=== PATIENT | female | born 1990 | race Caucasian/White ===

== ENCOUNTER 2021-03-16 12:13 | Inpatient (IN) | payer OTHER ==
[2021-03-16 16:36] VITALS: BMI 24.7
[2021-03-16] MEDS ORDERED: Ondansetron PF 4 MG/2 ML Vial IVP PRN (17:57)
[2021-03-16] MEDS ORDERED: Bisacodyl 5 MG TAB PO PRN (17:57)
[2021-03-16] MEDS ORDERED: Senokot S 8.6-50 MG TAB PO PRN (17:57)
[2021-03-16] MEDS ORDERED: Nitroglycerin 4.9 GM Bottle SL PRN (18:05)
[2021-03-16] MEDS: traZODone HCl 50 MG TAB PO SCH (20:08)
[2021-03-16] MEDS: Ondansetron ODT 4 MG TAB PO SCH (20:08)
[2021-03-16] MEDS: Haloperidol 5 MG TAB PO SCH (20:08)
[2021-03-16] MEDS: Pantoprazole 40 MG VIAL IVP SCH (20:09)
[2021-03-16] MEDS: Morphine 2 MG/ML VIAL SLOW IVP PRN (20:13)
[2021-03-16 21:38] LABS: Hemoglobin 10.7 g/dL (12.0-16.0); Mean Platelet Volume 7.8 fL (7.4-10.4); Platelet Count 245 thou/uL (130-400); RBC Distribution Width 13.7 % (11.5-14.5); Red Blood Cell (RBC) Count 3.55 mill/uL (4.20-5.40); White Blood Cell (WBC) Count 14.6 thou/uL (4.8-10.8)
[2021-03-16 21:53] LABS: Anion Gap 7 mmol/L (10-20); BUN (Urea Nitrogen) 11 mg/dL (7.0-18.7); Calc. Creatinine Clearance 108 mL/min (70-130); Calcium 7.8 mg/dL (7.8-10.44); Carbon Dioxide 32 mmol/L (22-29); Chloride 101 mmol/L (98-107); Glucose 96 mg/dL (70-105); Magnesium 1.8 mg/dL (1.6-2.6); Sodium 137 mmol/L (136-145)
[2021-03-16 21:57] LABS: Potassium 2.9 mmol/L (3.5-5.1)
[2021-03-16] MEDS ORDERED: Potassium Phosphate 30 MMOL in Sodium Chloride 0.9% 250 ML 250 ML IVPB SCH (22:30)
[2021-03-16] MEDS: Acetaminophen 325 MG TAB PO PRN (22:49)
[2021-03-17] MEDS: Morphine 2 MG/ML VIAL SLOW IVP PRN ×4 (00:13→22:17)
[2021-03-17] MEDS: Ondansetron ODT 4 MG TAB PO SCH ×6 (01:19→21:20)
[2021-03-17 07:07] LABS: #Eosinphils 0.1 thou/uL (0.0-0.7); #Lymphocytes 3.3 thou/uL (1.20-3.40); #Monocytes 0.7 thou/uL (0.11-0.59); #Neutrophils 5.6 thou/uL (1.40-6.50); %Basophils 0.3 % (0.0-1.0); %Eosinophils 1.4 % (0.0-10.0); %Lymphocytes 33.6 % (21.0-51.0); %Monocytes 7.2 % (0.0-10.0); %Neutrophils 57.4 % (42.0-75.0); Hemoglobin 10.3 g/dL (12.0-16.0); Mean Corpuscular HGB CONC 32.7 g/dL (32.0-36.0); Mean Corpuscular Hemoglobin 29.8 pg (27.0-31.0); Mean Corpuscular Volume 91.2 fL (78.0-98.0); Platelet Count 228 thou/uL (130-400); RBC Distribution Width 13.7 % (11.5-14.5); Red Blood Cell (RBC) Count 3.45 mill/uL (4.20-5.40); White Blood Cell (WBC) Count 9.8 thou/uL (4.8-10.8)
[2021-03-17 07:29] LABS: Anion Gap 8 mmol/L (10-20); BUN (Urea Nitrogen) 10 mg/dL (7.0-18.7); Calc. Creatinine Clearance 108 mL/min (70-130); Calcium 7.6 mg/dL (7.8-10.44); Carbon Dioxide 32 mmol/L (22-29); Chloride 102 mmol/L (98-107); Glucose 85 mg/dL (70-105); Potassium 3.5 mmol/L (3.5-5.1); Sodium 138 mmol/L (136-145)
[2021-03-17] MEDS: clonazePAM 1 MG TAB PO SCH (07:51)
[2021-03-17] MEDS: cefTRIAXone\\ROCEPHIN 1 GM in Sodium Chloride 0.9% 100 ML IVPB SCH (07:52)
[2021-03-17] MEDS: Pantoprazole 40 MG VIAL IVP SCH (07:52)
[2021-03-17 08:00] LABS: SARS-CoV-2 PCR by NAA Not Detected (NotDetected)
[2021-03-17] MEDS ORDERED: CLONAZEPAM 2 MG PO SCH (09:00)
[2021-03-17] MEDS ORDERED: Calcium Carbonate 500 MG ChewTAB PO PRN (09:51)
[2021-03-17] MEDS ORDERED: Famotidine 20 MG TAB PO SCH (10:00)
[2021-03-17] MEDS: Famotidine 20 MG TAB PO SCH ×2 (10:28→20:41)
[2021-03-17] MEDS ORDERED: Polyethylene Glycol 3350 17 GM Packet PO PRN (14:53)
[2021-03-17] MEDS ORDERED: Promethazine 25 MG TAB PO PRN (19:00)
[2021-03-17] MEDS ORDERED: Prochlorperazine 10 MG/2 ML VIAL IM PRN (19:00)
[2021-03-17] MEDS: Haloperidol 5 MG TAB PO SCH (20:40)
[2021-03-17] MEDS: traZODone HCl 50 MG TAB PO SCH (20:40)
[2021-03-18] MEDS: Ondansetron ODT 4 MG TAB PO SCH ×3 (08:25→20:37)
[2021-03-18] MEDS: Famotidine 20 MG TAB PO SCH (08:26)
[2021-03-18] MEDS: clonazePAM 1 MG TAB PO SCH (08:26)
[2021-03-18] MEDS: cefTRIAXone\\ROCEPHIN 1 GM in Sodium Chloride 0.9% 100 ML IVPB SCH (08:26)
[2021-03-18] MEDS: Morphine 2 MG/ML VIAL SLOW IVP PRN ×4 (08:34→22:13)
[2021-03-18] MEDS ORDERED: Sodium Chloride 0.9% 1,000 ML IV SCH (09:00)
[2021-03-18] MEDS ORDERED: PROPOFOL 200 MG/20 ML VIAL ONE (11:35)
[2021-03-18] MEDS ORDERED: Lidocaine 1% PF 5 ML VIAL ONE (11:35)
[2021-03-18] MEDS ORDERED: Ondansetron PF 4 MG/2 ML Vial ONE (11:35)
[2021-03-18] MEDS: Acetaminophen 325 MG TAB PO PRN (12:32)
[2021-03-18] MEDS ORDERED: Pantoprazole 40 MG VIAL IVP SCH (12:56)
[2021-03-18] MEDS ORDERED: Lidocaine 2% Viscous Solution 10 ML, Aluminum & Magnesium Hydroxide 30 ML SSW SCH (16:15)
[2021-03-18] MEDS ORDERED: Nicotine 21 MG PATCH TOP SCH (19:30)
[2021-03-18] MEDS: Haloperidol 5 MG TAB PO SCH (20:37)
[2021-03-18] MEDS: traZODone HCl 50 MG TAB PO SCH (20:38)
[2021-03-18] MEDS: Pantoprazole 40 MG VIAL IVP SCH (22:16)
[2021-03-19] MEDS: Ondansetron ODT 4 MG TAB PO SCH ×4 (02:55→20:30)
[2021-03-19] MEDS: Morphine 2 MG/ML VIAL SLOW IVP PRN ×5 (04:29→23:01)
[2021-03-19 06:13] LABS: Hemoglobin 11.1 g/dL (12.0-16.0); Mean Corpuscular HGB CONC 32.6 g/dL (32.0-36.0); Mean Corpuscular Hemoglobin 29.5 pg (27.0-31.0); Mean Corpuscular Volume 90.3 fL (78.0-98.0); Mean Platelet Volume 7.4 fL (7.4-10.4); Platelet Count 260 thou/uL (130-400); RBC Distribution Width 13.2 % (11.5-14.5); Red Blood Cell (RBC) Count 3.79 mill/uL (4.20-5.40); White Blood Cell (WBC) Count 6.9 thou/uL (4.8-10.8)
[2021-03-19 06:31] LABS: Anion Gap 8 mmol/L (10-20); BUN (Urea Nitrogen) 10 mg/dL (7.0-18.7); Calc. Creatinine Clearance 100 mL/min (70-130); Calcium 8.1 mg/dL (7.8-10.44); Carbon Dioxide 33 mmol/L (22-29); Chloride 99 mmol/L (98-107); Glucose 115 mg/dL (70-105); Sodium 137 mmol/L (136-145)
[2021-03-19] MEDS: cefTRIAXone\\ROCEPHIN 1 GM in Sodium Chloride 0.9% 100 ML IVPB SCH (08:39)
[2021-03-19] MEDS: clonazePAM 1 MG TAB PO SCH (08:39)
[2021-03-19] MEDS: Pantoprazole 40 MG VIAL IVP SCH ×2 (08:40→20:30)
[2021-03-19 11:11] LABS: Amphetamine Not Detected (NotDetected); Barbiturates Screen Not Detected (NotDetected); Benzodiazepine Screen Not Detected (NotDetected); Cocaine Metabolite Screen Not Detected (NotDetected); Methadone Not Detected (NotDetected); Methamphetamine Not Detected (NotDetected); Opiate Screen Detected (NotDetected); Oxycodone Screen Not Detected (NotDetected); Phencyclidine (PCP) Not Detected (NotDetected); THC/Cannabinoid Screen Not Detected (NotDetected); Tricyclic Screen Detected (NotDetected)
[2021-03-19] MEDS: Acetaminophen 325 MG TAB PO PRN (13:00)
[2021-03-19] MEDS ORDERED: Nicotine 21 MG PATCH TOP SCH (19:00)
[2021-03-19] MEDS: traZODone HCl 50 MG TAB PO SCH (20:29)
[2021-03-19] MEDS: Haloperidol 5 MG TAB PO SCH (20:39)
[2021-03-20] MEDS: Ondansetron ODT 4 MG TAB PO SCH ×3 (02:03→14:01)
[2021-03-20] MEDS: clonazePAM 1 MG TAB PO SCH (08:23)
[2021-03-20] MEDS: Pantoprazole 40 MG VIAL IVP SCH ×2 (08:23→10:20)
[2021-03-20] MEDS: cefTRIAXone\\ROCEPHIN 1 GM in Sodium Chloride 0.9% 100 ML IVPB SCH ×2 (08:24→10:20)
[2021-03-20] MEDS ORDERED: traMADol HCl 50 MG TAB PO PRN (09:57)
[2021-03-20] MEDS ORDERED: Cefdinir 300 MG CAP PO SCH ×2 (10:00→21:00)
[2021-03-20 16:35] VITALS: BP 137/92; TEMP 99.2
== END 2021-03-20 16:20 | disposition home or self-care (01) | DRG 381 ==
LOC: T4-B 12:13 → INTOOBSV 12:13 → OBSVTOIN 03-17 14:45
PROVIDERS: ADMIT Internal Medicine; ATTEND Internal Medicine
PROC: 0DB98ZX Excision of Duodenum, Via Natural or Artificial Opening Endoscopic, Diagnostic (ICD-10-PCS; principal; 2021-03-18)
PROC: 0DB28ZX Excision of Middle Esophagus, Via Natural or Artificial Opening Endoscopic, Diagnostic (ICD-10-PCS; 2021-03-18)
PROC: 0DB38ZX Excision of Lower Esophagus, Via Natural or Artificial Opening Endoscopic, Diagnostic (ICD-10-PCS; 2021-03-18)
PROC: 0DB48ZX Excision of Esophagogastric Junction, Via Natural or Artificial Opening Endoscopic, Diagnostic (ICD-10-PCS; 2021-03-18)
DX: K22.11 Ulcer of esophagus with bleeding (principal); N39.0 Urinary tract infection, site not specified; Z20.822 Contact with and (suspected) exposure to COVID-19; F95.2 Tourette's disorder; F41.9 Anxiety disorder, unspecified; F31.9 Bipolar disorder, unspecified; F17.210 Nicotine dependence, cigarettes, uncomplicated; E87.6 Hypokalemia; B96.89 Other specified bacterial agents as the cause of diseases classified elsewhere; K21.00 Gastro-esophageal reflux disease with esophagitis, without bleeding; K44.9 Diaphragmatic hernia without obstruction or gangrene; Z79.899 Other long term (current) drug therapy; Z82.49 Family history of ischemic heart disease and other diseases of the circulatory system; Z80.9 Family history of malignant neoplasm, unspecified; Z98.51 Tubal ligation status; Z87.11 Personal history of peptic ulcer disease
CPT/HCPCS: 36415; 80048; 80306; 83735; 84484; 85025; 85027; 87086; 88305; 93005; 93010; C9113; G0378; J0696; J0780; J2270; J2405; J2704; J3490; J7050; Q0162; U0003; U0005